=== PATIENT | male | born 1995 | race American Indian/Alaskan Native ===

== ENCOUNTER 2020-02-27 21:32 | Emergency (ER) | payer SELFPAY ==
[2020-02-27 22:08] LABS: Hematocrit 41.7 % (35.5-45.6); Hemoglobin 14.5 gm/dl (11.8-15.2); Mean Corpuscular HGB Conc 35 % (32-34); Mean Corpuscular Volume 85 fl (84-94); Platelet Count 260 K/mm3 (140-440); Red Blood Count 4.92 M/mm3 (3.65-5.03); Red Cell Distribution Width 13.2 % (13.2-15.2)
[2020-02-27 22:25] LABS: BUN/Creatinine Ratio 12; Blood Urea Nitrogen 12 mg/dL (9-20); Calcium 9.5 mg/dL (8.4-10.2); Hemolysis Index 11
[2020-02-27 23:07] LABS: Anisocytosis RARE; Hypochromasia Rare; Total Cells Counted 100
--- NOTE | 2020-02-27 23:50 | Emergency Department Report ---
ED General Adult HPI - General Chief complaint: Neuro Symptoms/Deficit Stated complaint: POSS HEART ATTACK/STROKE PUI?: No Time Seen by Provider: 02/27/20 23:49 Source: patient, RN notes reviewed Mode of arrival: Ambulatory Limitations: No Limitations - History of Present Illness Initial comments: The patient was evaluated in the emergency department for symptoms described in the history of present illness. He/she was evaluated in the context of the global COVID-19 pandemic, which necessitated consideration that the patient might be at risk for infection with the virus that causes COVID-19. Institutional protocols and algorithms that pertain to the evaluation of patients at risk for COVID-19 are in a state of rapid change based on information released by regulatory bodies including the CDC and federal and state organizations. These policies and algorithms were followed during the patient's care in the emergency department. Please note that these policies, procedures and recommendations changed on a rapid basis. During the history and physical examination, I am chaperoned by nurse Gela Humphries The patient is a pleasant 24-year-old gentleman, who is right-hand dominant, who is recreational cannabis consumer, but otherwise denies chronic medical conditions. 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 He presents to the ER today with a complaint of nontraumatic multiple extremity dysesthesias. He states that at around 8:40 PM yesterday, he developed tingling in his bilateral upper extremity fingertips, which was initially painless, and then reports that the tingling moved up his left fingertip through his left arm, up into his left armpit. This was associate with left bicep pain. He also en dorses right-sided fingertip tingling, and bilateral toe tingling. There is no headache, neck pain, chest pain, abdominal pain, shortness of breath, loss of vision, cough, loss of taste, loss of smell, bladder or bowel retention/incontinence, no saddle anesthesia, no ataxia, and no facial numbness. He has not done any heavy lifting, or repetitive ranges of motion. He does not think his tingling is present at this moment. He indicates "I came here just to make sure that I was okay." He denies IV drug use. -: Sudden Location: left, right, upper extremity, lower extremity Radiation: extremity Quality: aching Consistency: now resolved Improves with: none Worsens with: none Associated Symptoms: denies other symptoms - Related Data Previous Rx's Medication Instructions Recorded Last Taken Type Potassium Chloride 20 meq PO QDAY #30 packet 02/28/20 Unknown Rx Allergies Allergy/AdvReac Type Severity Reaction Status Date / Time Penicillins Allergy Hives Verified 02/27/20 21:45 ED Review of Systems ROS: Stated complaint: POSS HEART ATTACK/STROKE Other details as noted in HPI Comment: All other systems reviewed and negative Musculoskeletal: myalgia Neurological: paresthesias ED Past Medical Hx - Past Medical History Previous Medical History?: Yes Hx Asthma: Yes - Surgical History Past Surgical History?: No - Social History Smoking Status: Current Every Day Smoker Substance Use Type: Marijuana - Medications Home Medications: Home Medications Medication Instructions Recorded Confirmed Last Taken Type Potassium Chloride 20 meq PO QDAY #30 packet 02/28/20 Unknown Rx ED Physical Exam - General Limitations: No Limitations General appearance: alert, in no apparent distress - Head Head exam: Present: atraumatic, normocephalic - Eye Eye exam: Present: normal appearance, PERRL, EOMI, other (Visual acuity intact to finger counting, color perception, reading at a close distance). Absent: nystagmus - ENT ENT exam: Present: normal exam, normal orophraynx, mucous membranes moist, normal external ear exam - Neck Neck exam: Present: normal inspection, full ROM. Absent: tenderness, men ingismus - Respiratory Respiratory exam: Present: normal lung sounds bilaterally. Absent: respiratory distress, wheezes, rales, rhonchi, stridor, decreased breath sounds - Cardiovascular Cardiovascular Exam: Present: regular rate, normal rhythm, normal heart sounds. Absent: bradycardia, tachycardia, irregular rhythm, systolic murmur, diastolic murmur, rubs, gallop - GI/Abdominal GI/Abdominal exam: Present: soft. Absent: distended, tenderness, guarding, rebound, rigid, pulsatile mass - Rectal Rectal exam: Present: deferred - Extremities Exam Extremities exam: Present: normal inspection, full ROM, other (2+ pulses noted in the bilateral upper and lower extremities. There is no palpable cord. negative Homans sign. Muscular compartments are soft. The pelvis is stable.). Absent: pedal edema, calf tenderness - Back Exam Back exam: Present: normal inspection, full ROM. Absent: tenderness, CVA tenderness (R), CVA tenderness (L), paraspinal tenderness, vertebral tenderness - Neurological Exam Neurological exam: Present: alert (Sensation intact to light touch, proprioception, in the bilateral upper extremities. Downgoing plantar reflexes bilaterally), oriented X3, normal gait, other (There is no facial droop. The tongue is midline. Extraocular movements are intact bilaterally. There is 5 out of 5 strength in bilateral upper and lower extremities. Sensation is intact to light touch bilateral upper and lower extremities. There is no past- pointing. There is no pronator drift. There is normal [id number]. There is a normal gait.). Absent: motor sensory deficit - Psychiatric Psychiatric exam: Present: anxious - Skin Skin exam: Present: warm, dry, intact, normal color. Absent: rash ED Course Vital Signs 02/27/20 02/28/20 21:41 00:15 Temperature 99.3 F 98.5 F Pulse Rate 122 H 89 Respiratory 18 18 Rate Blood Pressure 138/93 Blood Pressure 133/79 [Left] O2 Sat by Pulse 97 99 Oximetry ED Medical Decision Making - Lab Data Result diagrams: 02/27/20 21:51 02/27/20 21:51 Vital Signs 02/27/20 02/28/20 21:41 00:15 Temperature 99.3 F 98.5 F Pulse Rate 122 H 89 Respiratory 18 18 Rate Blood Pressure 138/93 Blood Pressure 133/79 [Left] O2 Sat by Pulse 97 99 Oximetry Lab Results 02/27/20 02/27/20 Range/Units 21:51 21:51 WBC 8.9 (4.5-11.0) K/mm3 RBC 4.92 (3.65-5.03) M/mm3 Hgb 14.5 (11.8-15.2) gm/dl Hct 41.7 (35.5-45.6) % MCV 85 (84-94) fl MCH 30 (28-32) pg MCHC 35 H (32-34) % RDW 13.2 (13.2-15.2) % Plt Count 260 (140-440) K/mm3 Add Manual Diff Complete Total Counted 100 Seg Neuts % (Manual) 66.0 (40.0-70.0) % Band Neutrophils % 0 % Lymphocytes % (Manual) 25.0 (13.4-35.0) % Reactive Lymphs % (Man) 0 % Monocytes % (Manual) 6.0 (0.0-7.3) % Eosinophils % (Manual) 2.0 (0.0-4.3) % Basophils % (Manual) 1.0 (0.0-1.8) % Metamyelocytes % 0 % Myelocytes % 0 % Promyelocytes % 0 % Blast Cells % 0 % Nucleated RBC % Not Reportable Seg Neutrophils # Man 5.9 (1.8-7.7) K/mm3 Band Neutrophils # 0.0 K/mm3 Lymphocytes # (Manual) 2.2 (1.2-5.4) K/mm3 Abs React Lymphs (Man) 0.0 K/mm3 Monocytes # (Manual) 0.5 (0.0-0.8) K/mm3 Eosinophils # (Manual) 0.2 (0.0-0.4) K/mm3 Basophils # (Manual) 0.1 (0.0-0.1) K/mm3 Metamyelocytes # 0.0 K/mm3 Myelocytes # 0.0 K/mm3 Promyelocytes # 0.0 K/mm3 Blast Cells # 0.0 K/mm3 WBC Morphology Not Reportable Hypersegmented Neuts Not Reportable Hyposegmented Neuts Not Reportable Hypogranular Neuts Not Reportable Smudge Cells Not Reportable Toxic Granulation Not Reportable Toxic Vacuolation Not Reportable Dohle Bodies Not Reportable Pelger-Huet Anomaly Not Reportable Yonas Rods Not Reportable Platelet Estimate Not Reportable Clumped Platelets Not Reportable Plt Clumps, EDTA Not Reportable Large Platelets Not Reportable Giant Platelets Not Reportable Platelet Satelliting Not Reportable Plt Morphology Comment Not Reportable RBC Morphology Not Reportable Dimorphic RBCs Not Reportable Polychromasia Not Reportable Hypochromasia Rare Poikilocytosis Not Reportable Anisocytosis Rare Microcytosis Rare Macrocytosis Not Reportable Spherocytes Not Reportable Pappenheimer Bodies Not Reportable Sickle Cells Not Reportable Target Cells Not Reportable Tear Drop Cells Not Reportable Ovalocytes Not Reportable Helmet Cells Not Reportable Murphy-Benjamin Bodies Not Reportable Charlotte Rings Not Reportable Eliana Cells Not Reportable Bite Cells Not Reportable Crenated Cell Not Reportable Elliptocytes Not Reportable Acanthocytes (Spur) Not Reportable Rouleaux Not Reportable Hemoglobin C Crystals Not Reportable Schistocytes Not Reportable Malaria parasites Not Reportable Russ Bodies Not Reportable Hem Pathologist Commnt No Sodium 135 L (137-145) mmol/L Potassium 3.4 L (3.6-5.0) mmol/L Chloride 99.5 (98-107) mmol/L Carbon Dioxide 26 (22-30) mmol/L Anion Gap 13 mmol/L BUN 12 (9-20) mg/dL Creatinine 1.0 (0.8-1.3) mg/dL Estimated GFR > 60 ml/min BUN/Creatinine Ratio 12 % Glucose 128 H (75-100) mg/dL Calcium 9.5 (8.4-10.2) mg/dL - EKG Data -: EKG Interpreted by Me EKG shows normal: sinus rhythm Rate: normal - EKG Data When compared to previous EKG there are: previous EKG unavailable 02/28/20 00:20 Sinus rhythm, 89 bpm, normal axis, normal intervals, high left ventricular voltage, the EKG is not a STEMI - Medical Decision Making Differential diagnosis, including but not limited to: Electrolyte derangement, peripheral neuropathy, thyroid derangement, anxiety Assessment and plan: 24-year-old gentleman, with resolved tachycardia, who is afebrile, with reassuring vital signs, clinically sober, with unremarkable neurologic exam, GCS of 15, NIH score of 0. Walks with a steady gait. His upper extremities and lower extremities are nontender, without redness, pus or streaking, there is no pain with passive/active range of motion, examination not suggestive of cellulitis, fracture, dislocation, myositis or compartment syndrome. The patient states he is pain-free at this time, and declines pain medication. Laboratory studies were obtained prior to my personal evaluation. They are fairly unremarkable with exception of minimal and asymptomatic hypokalemia. Remainder of laboratory studies are unremarkable. Patient is quite engaged with his cellular phone, walking with a steady gait, does not appear to be in any acute distress. Patient suitable to follow-up with an outpatient primary care doctor or neurologist for resolved nonspecific neurologic complaint. Critical care attestation.: If time is entered above; I have spent that time in minutes in the direct care of this critically ill patient, excluding procedure time. ED Disposition Clinical Impression: Hypokalemia, History of paresthesia Disposition: - TO HOME OR SELFCARE Is pt being admited?: No Does the pt Need Aspirin: No Condition: Stable Instructions: Peripheral Neuropathy, Paresthesia, [id number] Additional Instructions: Rest, avoid heavy lifting, and strenuous physical activities. Participate in physical activities as tolerated. Patient may alternate ibuprofen [id number], with acetaminophen [id number], as needed for pain and/or discomfort. Patient may also alternate ice packs and heat packs. Recommend that patient avoid consumption of smoke products, tobacco, cannabis and marijuana. Recommend that patient follow-up with a primary care doctor or neurologist within the next 2 weeks. please take the potassium supplementation as directed. Please return to the emergency room right away with new pain, worsened pain, migration of pain, projectile vomiting, change in mental status, confusion, inability to tolerate liquid feeds, new, worsened or different symptoms not present on the initial emergency room evaluation. Prescriptions: Potassium Chloride 20 meq PO QDAY #30 packet Referrals: GAIL LINN MD [Staff Physician] - 3-5 Days CHERI SKINNER MD [Referring] - 3-5 Days Forms: Work/School Release Form(ED) - Assessment Assessment Interval: Baseline - Level of Consciousness 1a. Level of Consciousness: alert/keenly responsive - LOC Questions 1b. LOC Questions: answers both correctly - LOC Command 1c. LOC Commands: performs tasks correctly - Best Gaze 2. Best Gaze: normal - Visual 3. Visual: no visual loss - Facial Palsy 4. Facial Palsy: normal symmetrical movement - Motor Arm 5a. Motor Arm Left: no drift 5b. Motor Arm Right: no drift - Motor Leg 6a. Motor Leg Left: no drift 6b. Motor Leg Right: no drift - Limb Ataxia 7. Limb Ataxia: absent - Sensory 8. Sensory: normal - Best Language 9. Best Language: no aphasia - Dysarthria 10. Dysarthria: normal - Extinction and Inattention 11. Extinction/Inattention: no abnormality - Scoring Total Score: 0 Stroke Severity: No Stroke Symptoms
[2020-02-28] MEDS ORDERED: POTASSIUM CHLORIDE ER 20 MEQ TAB PO ONE (00:16)
[2020-02-28 02:10] VITALS: BP 136/84
== END 2020-02-28 02:00 | disposition home or self-care (01) ==
LOC: ED 21:32
DX: E87.6 Hypokalemia (principal); J45.909 Unspecified asthma, uncomplicated; F17.200 Nicotine dependence, unspecified, uncomplicated; Z88.0 Allergy status to penicillin
CPT/HCPCS: 36415; 80048; 82550; 83735; 84443; 85007; 85025; 93005; 99283